=== PATIENT | female | born 1955 | race Caucasian/White ===

== ENCOUNTER 2023-09-07 19:16 | Inpatient (IN) | payer MEDICARE, MEDICAID, SELFPAY ==
--- NOTE | ~2023-09-07 | CT_ITS ---
EXAMINATION: CT abdomen pelvis wo con DATE: 09/07/2023 20:11 INDICATION: Abdominal pain. Right flank pain. TECHNIQUE: Computed tomography (CT) of the abdomen and pelvis was performed without intravenous contr ast. Automated exposure control and iterative reconstruction technique were employed. The dose-length product was 1173.26 mGy-cm. COMPARISON: None FINDINGS: Lingular atelectasis/scarring along side a small left paracardial fat pad. Couple small calcified nod ules in the basilar right lower lobe consistent with old granulomatous disease. Heart size is normal. No pericardial or pleural effusion. There are some mild circumferential wall thickening at the dista l esophagus which could be seen with esophagitis such as in the setting of reflux. Cholecystectomy cl ips at the gallbladder fossa. Diffuse hepatic steatosis. Pancreas, spleen and bilateral adrenal gland s are normal. 1.6 cm low-attenuation exophytic cyst at the upper pole the right kidney. There are sev eral subcentimeter high attenuation proteinaceous/right exophytic cyst at the periphery of the right kidney. 1.3 cm parapelvic cyst at the left kidney. Rock catheter within the decompressed bladder. Ut erus and bilateral adnexa are unremarkable. There is wall thickening at the rectum and sigmoid colon consistent with a mild distal colitis. Small bowel and appendix are normal. No free intraperitoneal g as or fluid. No pathologically enlarged abdominal or pelvic lymphadenopathy. Likely intrathecal pain pump the subcutaneous tissues along the anterior right pelvic wall with catheter extending into the l umbar central canal at the level of L2-L3 and extending beyond the cephalad-most image. Moderate thor acolumbar levoscoliosis with severe spondylosis. There is anterior fusion at L4-L5. Partially visuali zed antegrade intramedullary javi and femoral neck dynamic compression screw fixation at the proximal left femur. Extensive muscular atrophy in the abdomen, pelvis and proximal thighs. IMPRESSION: 1. Wall thickening in the rectum and distal sigmoid colon consistent with colitis. 2. Diffuse hepatic steatosis. 3. Mild wall thickening the distal esophagus suggestive of esophagitis which could be related to refl ux. Reviewed, dictated and finalized at location A. AD CUTTER TENDER IMPRESSION: 1. Wall thickening in the rectum and distal sigmoid colon consistent with colit is. 2. Diffuse hepatic steatosis. 3. Mild wall thickening the distal esophagus suggestive of esophagitis which co uld be related to reflux.
--- NOTE | ~2023-09-07 | XR_ITS ---
EXAMINATION: XR femur LT min 2V DATE: 09/07/2023 20:31 INDICATION: Instrumentation pain at the left femur TECHNIQUE: AP and lateral views of the left femur obtained on overlapping proximal and distal images COMPARISON: None. FINDINGS: Old healed oblique subtrochanteric fracture of the proximal left femur which is fixed with an antegra de intramedullary javi with femoral neck dynamic compression screw and distal interlocking screw. No i nstrumentation failure or surrounding lucency to suggest loosening or infection. Alignment of the hea led fracture appears near anatomic. Small amount of heterotopic ossicle is overlying the greater troc hanter. Moderate osteoarthritis at the left hip. Moderate to severe tricompartmental osteoarthritis a t the left knee with medial and patellofemoral compartment predominance. Prominent heterotopic ossifi cation at the medial margin of the femoral condyle and proximal tibia likely related to chronic sprai n of the medial collateral ligament. Soft tissues are unremarkable. IMPRESSION: 1. Old healed internally fixed subtrochanteric fracture the proximal left femur. No acute osseous abn ormality. 2. Moderate osteoarthritis at the right hip and moderate to severe tricompartmental osteoarthritis at the right knee. Reviewed, dictated and finalized at location A. PHONE STATION INSTALLER IMPRESSION: 1. Old healed internally fixed subtrochanteric fracture the proximal left femur . No acute osseous abnormality. 2. Moderate osteoarthritis at the right hip and moderate to severe tricompartme ntal osteoarthritis at the right knee.
[2023-09-07 19:16] VITALS: BP 142/74; PULSE 145; RESP 18; TEMP 36.9; O2SAT 96
--- NOTE | 2023-09-07 19:32 | ECG_ITS ---
Measurements Intervals [place] Rate: 120 P: 82 TX: 153 QRS: -20 QRSD: 117 T: 70 QT: 332 QTc: 469 Interpretive Statements SINUS TACHYCARDIA RIGHT BUNDLE BRANCH BLOCK Electronically Signed On 09-08-2023 12:24:42 SWITCH BOX INSTALLER by Aditya Saravia M.D.
--- NOTE | 2023-09-07 19:56 | ED.ABDPAIN ---
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 She has a chronic Rock in and it was changed yesterday. She has been battling a UTI for the past month. She has been on and off antibiotics. They did a urine culture and it showed mixed cody as well as Provedencia Staurtii with sensitivity to Zosyn. She has not been on IV antibiotics or IM antibiotics to this point yet. MD elicited complaint: abdominal pain Pertinent past history: past UTI ( Chronic Rock; changes appropriately) Onset (ago): month(s) (1) Pain Consistency: intermittent Location: RLQ, R flank, suprapubic, pelvis, groin and other ( right lower back) Severity: moderate Pain scale (0-10): 5 Quality: stabbing and sharp Radiation: back Migration to: no migration Exacerbating factors: nothing Relieving factors: nothing Associated symptoms: nausea, vomiting, diarrhea and fever Related Data Home Medications Medication Instructions Recorded Confirmed baclofen 20 mg tablet 20 mg PO QID 09/07/23 09/07/23 blood sugar diagnostic (Accu-Chek 09/07/23 09/07/23 Guide test strips) blood-glucose meter (Accu-Chek 09/07/23 09/07/23 Guide Me Glucose Meter) donepezil 10 mg tablet 10 mg PO DAILY 09/07/23 09/07/23 ezetimibe 10 mg tablet 10 mg PO DAILY 09/07/23 09/07/23 insulin aspart U-100 100 unit/mL See Rx Instructions .Route .COMPLEX 09/07/23 09/07/23 (3 mL) subcutaneous pen (Novolog FlexPen U-100 Insulin aspart) insulin glargine 100 unit/mL (3 See Rx Instructions .Route .COMPLEX 09/07/23 09/07/23 mL) subcutaneous pen (Lantus Solostar U-100 Insulin) lancets (Accu-Chek Softclix 09/07/23 09/07/23 Lancets) metoprolol succinate 25 mg 25 mg PO DAILY 09/07/23 09/07/23 tablet,extended release 24 hr oxybutynin chloride 10 mg 10 mg PO DAILY 09/07/23 09/07/23 tablet,extended release 24 hr pen needle, diabetic 32 gauge x 09/07/23 09/07/2308/09 (Novofine 32) semaglutide 0.25 mg or 0.5 mg (2 See Rx Instructions .Route .COMPLEX 09/07/23 09/07/23 mg/3 mL) subcutaneous pen injector (Ozempic) Allergies Allergy/AdvReac Type Severity Reaction Status Date / Time Sulfa (Sulfonamide Allergy Hives Verified 09/07/23 19:57 Antibiotics) Exam Const: General: healthy appearing Nutritional Appearance: well nourished Orientation/consciousness: patient oriented x3 HENMT: Head: normal to inspection Ears: external ears normal Face/Nose/Sinus: Normal external nose present Eyes: Conjunctivae: conjunctivae normal Pupils: Equal, round and reactive pupils present EOM: EOMs intact bilaterally Neck: Neck: normal visual inspection Chest: Chest palpation & inspection: normal inspection of the chest Resp: Effort & Inspection: normal respiratory effort and not labored Auscultation: clear to auscultation bilaterally and no crackles Cardio: Rate: regular rate Rhythm: regular rhythm Heart sounds: no murmurs GI: Inspection: non-distended GI Palp: Yes Soft to palpation, Yes Tenderness to palpation present (GI) ( diffuse lower abdomen bilaterally), No Guarding due to palpation present (GI), No Rigid due to palpation, No Hernia present, No Palpable mass present and No Rebound tenderness present Auscultation: normal bowel sounds : General: No bladder normal to palpation ( tender to palpation) Urinary Catheter: Urinary Catheter: patent and draining, urine cloudy, urine dark and other ( sediment seen) Back/Spine/Pelvis: Back: No no CVA tenderness and CVA tenderness ( right side) Skin: General skin exam: normal color Rashes: no rashes Wounds: wound noted and wounds noted Other: Two decubitus ulcers in the upper buttocks region both being followed by wound care and ho
[2023-09-07 20:30] LABS: Glucose Point of Care 188 mg/dl (65-105)
[2023-09-07 20:47] LABS: Basophils Absolute Auto 0.06 K/mm3 (0.00-0.10); Basophils Percent Auto 0.6 % (0.0-1.0); Eosinophils Absolute Auto 0.27 K/mm3 (0.02-0.50); Eosinophils Percent Auto 2.6 % (1.0-6.0); Hematocrit 48.5 % (35.0-42.0); Hemoglobin 15.2 g/dL (11.7-13.8); Immature Granulocyte Absolute 0.04 K/mm3 (0.00-0.00); Immature Granulocyte Percent A 0.4 % (0.0-0.0); Lymphocytes Absolute Auto 2.07 K/mm3 (1.10-4.50); Lymphocytes Percent Auto 19.7 % (18.0-42.0); Mean Corpuscular HGB Conc 31.3 g/dL (32.0-36.0); Mean Corpuscular Hemoglobin 27.7 pg (27.0-31.0); Mean Corpuscular Volume 88.3 fL (78.0-102.0); Mean Platelet Volume 9.7 fl (9.2-11.8); Monocytes Absolute Auto 0.45 K/mm3 (0.10-0.90); Monocytes Percent Auto 4.3 % (2.0-11.0); Neutrophils Absolute Auto 7.6 K/mm3 (1.7-7.2); Neutrophils Percent Auto 72.4 % (50.0-70.0); Platelet Count Result 349 K/mm3 (150-420); Red Blood Count 5.49 M/mm3 (4.20-5.40); White Blood Count 10.5 K/mm3 (4.8-10.8)
[2023-09-07] MEDS: MORPHINE SULFATE (*CRX) 2 MG/ML INJ IV PUSH (21:00)
[2023-09-07] MEDS: SODIUM CHLORIDE 0.9% IV 1,000 ML 999 ML IV CONT (21:00)
[2023-09-07 21:02] LABS: Partial Thromboplastin Time 33.3 SEC (23.90-30.70); Prothrombin Time 10.8 Seconds (9.50-12.10)
[2023-09-07 21:05] LABS: Alanine Aminotransferase 23 U/L (14-59); Albumin Level 3.3 g/dL (3.4-5.0); Alkaline Phosphatase 70 U/L (46-116); Anion Gap 14 mmol/L (8-16); Aspartate Amino Transferase 15 U/L (15-37); Bilirubin,Total 0.8 mg/dL (0.00-1.00); Blood Urea Nitrogen 16 mg/dL (7-18); Calcium 9.1 mg/dL (8.5-10.1); Carbon Dioxide 28 mmol/L (21-32); Chloride 102 mmol/L (98-108); Estimated CRCL calculation 74 ml/min; Estimated Glomerular Filt Rate > 60; Glucose 189 mg/dL (70-99); Lactic Acid Reflex 1.9 mmol/L (0.4-2.0); Osmolality Calculated 304 mOsm/kg (285-295); Potassium 3.4 mmol/L (3.5-5.1); Sodium 144 mmol/L (136-145); Total Protein 8.5 g/dL (6.4-8.2); Troponin I 9.8 ng/L (0.00-60.4)
[2023-09-07 21:11] LABS: Magnesium 1.8 mg/dL (1.8-2.4)
[2023-09-07] MEDS: PIPERACILLN/TAZ 3.375GM/NS50ML 3.375 GM/50 ML BAG IVPB (21:34)
[2023-09-07 21:42] LABS: Appearance Urine Cloudy (Clear); Bilirubin Urine 1+ (Negative); Blood Urine 3+ (Negative); Color Urine Yellow (Yellow); Glucose Urine UA Negative (Negative); Ketones Urine Negative (Negative); Leukocyte Esterase Ur 1+ LEU/UL (Negative); Nitrate Urine Positive (Negative); Protein Urine 2+ (Negative); Specific Grav Ur >= 1.030 (1.010-1.020); pH Urine 5.5 (5.0-8.0)
[2023-09-07 21:49] LABS: Add Urine Microscopic? YES; Bacteria Urine 3+ /hpf; RBC Urine 51-75 /hpf (0-2); Squamous Epithelial Cell Urine Moderate /hpf (Few); WBC Urine 21-30 /hpf (0-3)
[2023-09-07 23:00] VITALS: BMI 29.4
--- NOTE | 2023-09-07 23:00 | ADMGEN ---
This patient, Cristiane Archer, was admitted to 2nd Floor Room 205-1. Patient/family oriented to hospital policies and general routines including ID bracelet, bed and alarms, visiting hours, pain management, procedures, bathroom and other care routines, personal items, smoking policy, room service/diet, and visiting hours. Information on how to activate the Rapid Response Team has been discussed. Patient/Family are encouraged to report perceived risks to care and to ask questions if they do not understand what they are told or what they should do.
[2023-09-07 23:30] VITALS: PULSE 110; RESP 20; O2SAT 99
[2023-09-07] MEDS: POTASSIUM CHLORIDE 20 MEQ ER TABLET PO (23:32)
[2023-09-08] VITALS (7 sets, daily range): BP systolic 110–142; BP diastolic 42–84; PULSE 67–110; RESP 18–20; TEMP 35.7–36.6; O2SAT 95–99
[2023-09-08] MEDS: SODIUM CHLORIDE 0.9% IV 1,000 ML 125 ML IV CONT ×3 (00:25→19:09)
[2023-09-08] MEDS: HYDROcodone/acetaminophen (*CRX) 5-325 MG TABLET 1 TAB PO ×2 (01:39→11:41)
[2023-09-08] MEDS: PIPERACILLN/TAZ 3.375GM/NS50ML 3.375 GM/50 ML BAG IVPB ×4 (02:14→20:50)
[2023-09-08] MEDS: MORPHINE SULFATE (*CRX) 2 MG/ML INJ IV PUSH (02:35)
[2023-09-08 05:14] LABS: Basophils Absolute Auto 0.04 K/mm3 (0.00-0.10); Basophils Percent Auto 0.5 % (0.0-1.0); Eosinophils Absolute Auto 0.21 K/mm3 (0.02-0.50); Eosinophils Percent Auto 2.8 % (1.0-6.0); Hemoglobin 12.2 g/dL (11.7-13.8); Immature Granulocyte Absolute 0.04 K/mm3 (0.00-0.00); Immature Granulocyte Percent A 0.5 % (0.0-0.0); Lymphocytes Absolute Auto 0.73 K/mm3 (1.10-4.50); Lymphocytes Percent Auto 9.6 % (18.0-42.0); Mean Corpuscular HGB Conc 31.3 g/dL (32.0-36.0); Mean Corpuscular Hemoglobin 27.8 pg (27.0-31.0); Mean Corpuscular Volume 88.8 fL (78.0-102.0); Mean Platelet Volume 10.2 fl (9.2-11.8); Monocytes Absolute Auto 0.22 K/mm3 (0.10-0.90); Monocytes Percent Auto 2.9 % (2.0-11.0); Neutrophils Absolute Auto 6.4 K/mm3 (1.7-7.2); Neutrophils Percent Auto 83.7 % (50.0-70.0); Platelet Count Result 259 K/mm3 (150-420); Red Blood Count 4.39 M/mm3 (4.20-5.40); White Blood Count 7.6 K/mm3 (4.8-10.8)
[2023-09-08 05:32] LABS: Alanine Aminotransferase 24 U/L (14-59); Albumin Level 2.5 g/dL (3.4-5.0); Alkaline Phosphatase 51 U/L (46-116); Bilirubin,Total 1.1 mg/dL (0.00-1.00); Blood Urea Nitrogen 15 mg/dL (7-18); Calcium 7.7 mg/dL (8.5-10.1); Carbon Dioxide 24 mmol/L (21-32); Estimated CRCL calculation 68 ml/min; Estimated Glomerular Filt Rate > 60; Glucose 185 mg/dL (70-99); Total Protein 6.5 g/dL (6.4-8.2)
[2023-09-08 05:45] LABS: Anion Gap 12 mmol/L (8-16); Aspartate Amino Transferase 37 U/L (15-37); Chloride 107 mmol/L (98-108); Osmolality Calculated 301 mOsm/kg (285-295); Sodium 143 mmol/L (136-145)
[2023-09-08] MEDS: INSULIN HUMAN LISPRO (*BKC) 1,000 UNITS/10 ML VIAL 20 UNITS SUB-Q ×3 (08:21→16:40)
[2023-09-08] MEDS: BACLOFEN 10 MG TABLET 20 MG PO ×4 (08:21→20:44)
[2023-09-08] MEDS: METOPROLOL SUCCINATE EXT REL 25 MG TABCR PO (08:22)
[2023-09-08] MEDS: DONEPEZIL HCL 5 MG TABLET 10 MG PO (08:22)
[2023-09-08] MEDS: SACCHAROMYCES BOULARDII 250 MG CAPSULE PO ×3 (08:22→16:29)
[2023-09-08] MEDS: EZETIMIBE 10 MG TABLET PO (08:22)
[2023-09-08] MEDS: oxyBUTYnin CHLORIDE XL 5 MG TAB.ER.24 10 MG PO (08:22)
[2023-09-08] MEDS: ENOXAPARIN 40 MG/0.4 ML SYRINGE SUB-Q (08:23)
--- NOTE | 2023-09-08 09:39 | PM.IMHP ---
H&P: HPI History of Present Illness Date/Time: 09/08/23 09:39 Chief Complaint: UTI , buttock decub Narrative: This is a 67 year old female who has been a paraplegic since the 's Patient has a chronic rincon that obviously has very poor care. Patient has a acute on chronic urinary tract infection and patient has removed and replaced the same catheter. According to patient she was not having urine output and she has home health but she only recieves one catheter per month. Per the ER documentation patient has a Ubi with growing in which it is susceptible to Zosyn. I a unsure where this information was obtained from although a culture has been sent off. Patient has a wound on her iliac area in which she has informed me she does the dressing she just reaches back there and places the packing and puts a 4x4 when she has Dakin solution she uses otherwise she uses normal saline. Patient states that it has been a while since she has seen her PCP as she does not have transportation. Patient is receiving her 2nd dose of IV antibiotic and tomorrow is her third. She informed she has place to go although she has not had her medication refilled. When asked to many question and or pressured to ask question that does not make she she becomes emotional and irrational slinging back and forth in the bed yelling and hitting herself in which I personally seen when the nurse asked her a question and she voiced that she was going to call someone to up here and she will take care of this asking all these questioned that she has deemed unnecessary. When I explained to patient we were jsut trying to get adequate information to assist in her care she immediately stopped and acted as if nothing had just happened. I did inform patient since she already has home health set up and tomorrow she will have recieved her third dose of IV antibioitic she may be sent home on oral antibiotic and she will be given a call if the medication we send her home with will not work and that it would be up to the following provider. Patient has been eating and drinking without difficulties. She ahs remained afebrile. Patient buttock wound iliac creast is deep almost to the you are able to see some bone but looks as if close. Patient informs me that this has been seen by a a few doctor and even a wound clinic per patient that this is the best it will be and it has been chronic for a few years. Review of Systems Review of Systems: UTI, wound care All systems reviewed & are unremarkable except as noted in HPI and below PMFSH Past Medical History Medical History (Updated 09/08/23 @ 18:21 by Brea Tate NP) Paraplegia Wound of buttock Social History Social History Smoking status: Never smoker Second hand tobacco smoke exposure: No Alcohol intake: never Substance use: never Substance use type: does not use Do You Feel Safe in your Home?: Yes Lack of Transportation: No Lack of Food: Sometimes True Current Housing: I Have Housing Concerned About Future Housing: No Difficulty Paying Gas/Electric Bills: No Difficulty Paying for Meds: No Currently Unemployed: No Education: Trade/Vocational Certificate Difficulty w/ Childcare or Family Care: No Spiritual care concerns: No Meds Home Medications and Allergies Home Medications Medication Instructions Recorded Confirmed Type baclofen 20 mg tablet 20 mg PO QID 09/07/23 09/07/23 History blood sugar diagnostic (Accu-Chek 09/07/23 09/07/23 History Guide test strips) blood-glucose meter (Accu-Chek 09/07/23 09/07/23 History Guide Me Glucose Meter) donepezil 10 mg tablet 10 mg PO DAILY 09/07/23 09/07/23 History ezetimibe 10 mg tablet 10 mg PO DAILY 09/07/23 09/07/23 History insulin aspart U-100 100 unit/mL See Rx Instructions .Route .COMPLEX 09/07/23 09/07/23 History (3 mL) subcutaneous pen (Novolog FlexPen U-100
[2023-09-08 11:25] LABS: Glucose Point of Care 126 mg/dl (65-105)
[2023-09-08 11:25] LABS: Glucose Point of Care 138 mg/dl (65-105)
--- NOTE | 2023-09-08 11:50 | PC.NURSE ---
family in room with patient, pt requested pain medications for lower extremity pain. states pain in constant , rate 5/10. call alvarez in reach
[2023-09-08] MEDS: ONDANSETRON INJ 4 MG/2 ML VIAL IV PUSH (12:50)
--- NOTE | 2023-09-08 12:50 | PC.NURSE ---
pt complaint of nausea, medication given as ordered.
[2023-09-08 16:39] LABS: Glucose Point of Care 147 mg/dl (65-105)
--- NOTE | 2023-09-08 18:44 | PC.NURSE ---
report to anna elizondo. all questions answered
[2023-09-08 20:49] LABS: Glucose Point of Care 96 mg/dl (65-105)
[2023-09-08] MEDS: INSULIN GLARGINE (*BKC) 1,000 UNITS/10 ML VIAL 30 UNITS SUB-Q (20:53)
[2023-09-09] VITALS (7 sets, daily range): BP systolic 113–140; BP diastolic 51–74; PULSE 60–76; RESP 18–20; TEMP 36–36.3; O2SAT 95–98
[2023-09-09] MEDS: HYDROcodone/acetaminophen (*CRX) 5-325 MG TABLET 1 TAB PO (00:55)
[2023-09-09] MEDS: PIPERACILLN/TAZ 3.375GM/NS50ML 3.375 GM/50 ML BAG IVPB ×4 (02:09→21:33)
[2023-09-09] MEDS: SODIUM CHLORIDE 0.9% IV 1,000 ML 125 ML IV CONT ×2 (04:53→14:00)
[2023-09-09 05:50] LABS: Hematocrit 35.6 % (35.0-42.0); Mean Corpuscular HGB Conc 30.9 g/dL (32.0-36.0); Mean Corpuscular Hemoglobin 27.5 pg (27.0-31.0); Mean Platelet Volume 10.1 fl (9.2-11.8); Platelet Count Result 222 K/mm3 (150-420); Red Cell Distribution Width 16.1 % (11.6-14.4); White Blood Count 4.1 K/mm3 (4.8-10.8)
[2023-09-09 06:00] LABS: Anion Gap 8 mmol/L (8-16); Blood Urea Nitrogen 14 mg/dL (7-18); Carbon Dioxide 26 mmol/L (21-32); Chloride 110 mmol/L (98-108); Estimated CRCL calculation 87 ml/min; Estimated Glomerular Filt Rate > 60; Glucose 239 mg/dL (70-99); Osmolality Calculated 306 mOsm/kg (285-295); Sodium 144 mmol/L (136-145)
--- NOTE | 2023-09-09 06:19 | PC.NURSE ---
Patient was in bed, visiting with her family at bedside. Telemetry is running in sinus rhythm. Accuchecks range from 147 to 96. Patient was c/o back spasms/pain and received a [place] PO at 0055. This was effective for pain, but patient is now c/o being warm. She is afebrile, and bedclothes have been removed to help her cool down. Patient is concerned that the pain pill may be effecting her adversely, or it may be something I ate . Vitals are stable and WNL. Patient has slept off and on during the night, but she stated that this is typical for her. Patient is a paraplegic, and has a chronic rincon. Patient voids BM by pulling it out with her fingers, as she states that she is unable to push it out.
[2023-09-09] MEDS: ONDANSETRON INJ 4 MG/2 ML VIAL IV PUSH ×2 (06:25→12:31)
[2023-09-09] MEDS: INSULIN HUMAN LISPRO (*BKC) 1,000 UNITS/10 ML VIAL 20 UNITS SUB-Q (08:13)
[2023-09-09 08:16] LABS: Glucose Point of Care 221 mg/dl (65-105)
[2023-09-09] MEDS: SACCHAROMYCES BOULARDII 250 MG CAPSULE PO ×3 (09:29→17:22)
[2023-09-09] MEDS: ENOXAPARIN 40 MG/0.4 ML SYRINGE SUB-Q (09:29)
[2023-09-09] MEDS: DONEPEZIL HCL 5 MG TABLET 10 MG PO (09:30)
[2023-09-09] MEDS: BACLOFEN 10 MG TABLET 20 MG PO ×4 (09:31→21:34)
[2023-09-09] MEDS: EZETIMIBE 10 MG TABLET PO (09:32)
[2023-09-09 11:36] LABS: Glucose Point of Care 189 mg/dl (65-105)
--- NOTE | 2023-09-09 12:06 | PM.IMPN ---
Progress Note: A&P Assessment and Plan (1) Acute UTI: Code(s): N39.0 - Urinary tract infection, site not specified Status: Acute Assessment and Plan: IV fluids IV antiibotics Rock changed on 09/07/23 intake and output 09/09: Urine culture remains pending (2) Colitis: Code(s): K52.9 - Noninfective gastroenteritis and colitis, unspecified Status: Acute Assessment and Plan: Wall thickening in the rectum and distal sigmoid colon consistent with colitis on imaging. Patient on IV antibiotics for urinary tract infection. 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 Patient complained of nausea throughout the day has received p.r.n. nausea medication with some improvement. Patient still having low appetite and not eating and drinking enough to completely discontinue IV fluids. Urine catheter draining well. Patient denies difficulty breathing chest pain fever chills. Still pending urine culture. Review of Systems Review of Systems: All systems reviewed & are unremarkable except as noted in HPI and below Exam Const: General: comfortable Other: moment of distress and emotional outburst HENMT: Face/Nose/Sinus: Normal nares present Mouth: Yes moist mucous membranes Eyes: General: appearance normal, both eyes and all related structures Resp: Effort & Inspection: normal respiratory effort Auscultation: clear to auscultation bilaterally Cardio: Rate: regular rate Rhythm: regular rhythm GI: Auscultation: normal bowel sounds Other: diarrhea to soft stool Urinary Catheter: Urinary Catheter: patent and draining and urine clear Skin: Wounds: wounds noted (pressure wound noted) Other: Multiple healed wounds discoloration noted Extrem: General: pedal edema Other: Bilateral feet flaccid inverted some toes discolored Psych: Affect: Anxious affect present Objective Data Vital Signs Vital Signs: Vital Signs - 24 hr 09/08/23 16:00 09/08/23 16:00 09/08/23 20:00 Temperature 35.7 C L Pulse Rate 67 68 75 Respiratory Rate 18 Blood Pressure 110/49 L Pulse Oximetry 96 Oxygen Delivery Room Air 09/08/23 20:00 09/08/23 20:00 09/09/23 00:00 Temperature 36.3 C L Pulse Rate 74 74 68 Respiratory Rate 18 20 Blood Pressure 142/62 H Pulse Oximetry 97 97 Oxygen Delivery Room Air Room Air 09/09/23 00:00 09/09/23 04:00 09/09/23 04:00 Temperature 36.2 C L 36.1 C L Pulse Rate 72 69 69 Respiratory Rate 18 20 Blood Pressure 113/53 L 119/51 L Pulse Oximetry 96 95 Oxygen Delivery Room Air Room Air 09/09/23 08:00 09/09/23 09:35 09/09/23 08:00 Temperature 36.0 C L Pulse Rate 76 68 68 Respiratory Rate 20 Blood Pressure 113/70 Pulse Oximetry 96 Oxygen Delivery Room Air Intake/Output Intake/Output: Intake & Output 09/06/23 09/07/23 09/08/23 09/09/23 23:59 23:59 23:59 23:59 Intake Total 1050 4520 2000 Output Total 400 1450 750 Balance 650 3070 1250 Meds/Results Medications: Active Medications Generic Name Dose Route Start Last Admin Trade Name Freq PRN Reason Stop Dose Admin Acetaminophen 650 mg 09/07/23 21:53 Acetaminophen 325 Mg Tablet PO Q4H PRN Mild Pain (1-3) or Fever Hydrocodone Bitart/Acetaminop
[2023-09-09 17:00] LABS: Glucose Point of Care 206 mg/dl (65-105)
[2023-09-09] MEDS: INSULIN GLARGINE (*BKC) 1,000 UNITS/10 ML VIAL 30 UNITS SUB-Q (21:30)
[2023-09-09 21:36] LABS: Glucose Point of Care 150 mg/dl (65-105)
[2023-09-10] VITALS: BP 148/59; PULSE 72; RESP 20; TEMP 36; O2SAT 97
[2023-09-10] MEDS: SODIUM CHLORIDE 0.9% IV 1,000 ML 125 ML IV CONT (01:47)
[2023-09-10] MEDS: PIPERACILLN/TAZ 3.375GM/NS50ML 3.375 GM/50 ML BAG IVPB (02:07)
[2023-09-10] MEDS: MORPHINE SULFATE (*CRX) 2 MG/ML INJ IV PUSH (02:17)
[2023-09-10] MEDS: ONDANSETRON INJ 4 MG/2 ML VIAL IV PUSH ×2 (03:21→08:20)
--- NOTE | 2023-09-10 04:33 | PC.NURSE ---
Pt noted yelling out in room, states she is having muscle spasm to left hip. Able to reposition pt for comfort with 2 assist. Pt anxious, speaking quickly, with flighty sentences. Also c/o IV bothering her , states he face feels funny . IV fluids stopped to see if sx resolved, no angioedema noted. 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 Facial symptoms not resolved after pausing Normal Saline, pt agrees to resume fluids at ordered rate of 125mL/hr. Denies further needs at this time.
--- NOTE | 2023-09-10 05:24 | PC.NURSE ---
Patient was in bed, visiting with her family at bedside. Patient is paraplegic, with bilateral footdrop. Patient has a rincon, and stage 3-4 pressure wound on her buttocks. Patient has anxiety; she speaks quickly, with flight of ideas, possibly due to recent trauma. Patient has chronic BLE pain. Patient received morphine for pain of 02/12 at 0217. Morphine was effective, but 2 hours later, she c/o hip spasms and numbness around her mouth. Patient declined other pain medication at this time. Patient fell back to sleep shortly after being repositioned. Vitals WNL except for low temperature (96.8) and high BP (148/59). Patient's blood sugars ranged from 150 to 221. She is reportedly not eating or drinking well; as a result, she has normal saline running at 125 mL/hr. Patient's output was 1600 mL in the rincon.
[2023-09-10 08:00] VITALS: BP 139/70; PULSE 66; RESP 16; TEMP 36.1; O2SAT 98
[2023-09-10 08:10] LABS: Glucose Point of Care 141 mg/dl (65-105)
[2023-09-10] MEDS: ENOXAPARIN 40 MG/0.4 ML SYRINGE SUB-Q (09:47)
[2023-09-10] MEDS: SACCHAROMYCES BOULARDII 250 MG CAPSULE PO ×3 (09:48→18:17)
[2023-09-10] MEDS: BACLOFEN 10 MG TABLET 20 MG PO ×4 (09:48→20:48)
[2023-09-10] MEDS: oxyBUTYnin CHLORIDE XL 5 MG TAB.ER.24 10 MG PO (09:48)
[2023-09-10 09:49] VITALS: PULSE 66
[2023-09-10] MEDS: DONEPEZIL HCL 5 MG TABLET 10 MG PO (09:49)
[2023-09-10] MEDS: METOPROLOL SUCCINATE EXT REL 25 MG TABCR PO (09:49)
[2023-09-10] MEDS: EZETIMIBE 10 MG TABLET PO (09:49)
[2023-09-10] MEDS: INSULIN HUMAN LISPRO (*BKC) 1,000 UNITS/10 ML VIAL 20 UNITS SUB-Q ×2 (09:58→12:30)
--- NOTE | 2023-09-10 10:52 | PM.IMPN ---
Progress Note: A&P Assessment and Plan (1) Acute UTI: Code(s): N39.0 - Urinary tract infection, site not specified Status: Acute Assessment and Plan: IV fluids IV antiibotics Rock changed on 09/07/23 intake and output 09/09: Urine culture remains pending 09/10: Urine culture growing E coli, sensitivities pending. Lost IV access. Keflex 500 mg q.6 pending sensitivities (2) Colitis: Code(s): K52.9 - Noninfective gastroenteritis and colitis, unspecified Status: Acute Assessment and Plan: Wall thickening in the rectum and distal sigmoid colon consistent with colitis on imaging. Patient on IV antibiotics for urinary tract infection. 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 Patient lost IV access again with no remaining easy veins so we will transition to Keflex 500 mg every 6 hours. Based on sensitivities if we have to restart IV antibiotics we will have to place a PICC line. Coccyx wound was further explored he by nursing staff on dressing change and there is no tunneling. Best product would be collagen but that is not available for us at this time so we are using wet to dry dressings. Patient will require follow-up with wound care after discharge. Additionally, patient is planning to discharge to an apartment living by herself with daily visits from caretakers. Due to prolonged paraplegia and bed confined status patient requires durable medical equipment of a hospital bed semi-elective. Patient requires positioning of body in ways not feasible in a regular bed to alleviate pain and pressure that has caused pressure wounds on her coccyx and left iliac crest. Patient requires frequent changes in body position to manage pain and offload pressure. To accommodate these changes in body position to manage pain and offload pressure patient requires a trap ease. She needs a low air loss mattress to decrease pressure ulcer potential. Review of Systems Review of Systems: All systems reviewed & are unremarkable except as noted in HPI and below Exam Const: General: comfortable Other: moments of distress and emotional outbursts HENMT: Face/Nose/Sinus: Normal nares present Mouth: Yes moist mucous membranes Eyes: General: appearance normal, both eyes and all related structures Resp: Effort & Inspection: normal respiratory effort Auscultation: clear to auscultation bilaterally Cardio: Rate: regular rate Rhythm: regular rhythm GI: Auscultation: normal bowel sounds Other: diarrhea to soft stool Urinary Catheter: Urinary Catheter: patent and draining and urine clear Skin: General skin exam: wounds noted (pressure wound noted on coccyx and left iliac crest) Wounds: wounds noted (pressure wound noted) Extrem: General: pedal edema Other: Bilateral feet flaccid inverted some toes discolored Psych: Affect: normal affect and Anxious affect present Objective Data Vital Signs Vital Signs: Vital Signs - 24 hr 09/09/23 12:00 09/09/23 16:00 09/09/23 20:00 Temperature 36.3 C L Pulse Rate 60 64 64 Respiratory Rate 20 20 Blood Pressure 140/74 Pulse Oximetry 98 98 Oxygen Delivery Room Air Room Air 09/10/23 00:00 09/10/23 08:00 09/10/23 09:49 Temperature 36.0 C L 36.1 C L Pulse Rate 72 66 66 Respirator
[2023-09-10] MEDS: CEPHALEXIN 500 MG CAPSULE PO ×3 (11:31→23:47)
[2023-09-10 11:41] LABS: Glucose Point of Care 206 mg/dl (65-105)
[2023-09-10 16:35] VITALS: BP 132/69; PULSE 67; RESP 16; TEMP 36.1; O2SAT 96
[2023-09-10 16:59] LABS: Glucose Point of Care 127 mg/dl (65-105)
[2023-09-10 17:22] VITALS: BMI 10.0
[2023-09-10 20:00] VITALS: PULSE 67; RESP 16; O2SAT 96
[2023-09-10] MEDS: INSULIN GLARGINE (*BKC) 1,000 UNITS/10 ML VIAL 30 UNITS SUB-Q (20:50)
[2023-09-10 20:52] LABS: Glucose Point of Care 193 mg/dl (65-105)
[2023-09-11] VITALS: BP 132/73; PULSE 68; RESP 20; TEMP 36.2; O2SAT 97
[2023-09-11] MEDS: CEPHALEXIN 500 MG CAPSULE PO ×3 (05:34→17:43)
[2023-09-11 07:42] LABS: Glucose Point of Care 156 mg/dl (65-105)
--- NOTE | 2023-09-11 07:48 | PC.NURSE ---
Pt blood sugar is 156 today.
[2023-09-11 08:00] VITALS: BP 172/91; PULSE 67; RESP 14; TEMP 36.2; O2SAT 96
[2023-09-11 08:42] VITALS: PULSE 67
[2023-09-11] MEDS: SACCHAROMYCES BOULARDII 250 MG CAPSULE PO ×3 (08:42→17:43)
[2023-09-11] MEDS: METOPROLOL SUCCINATE EXT REL 25 MG TABCR PO (08:42)
[2023-09-11] MEDS: ENOXAPARIN 40 MG/0.4 ML SYRINGE SUB-Q (08:42)
[2023-09-11] MEDS: BACLOFEN 10 MG TABLET 20 MG PO ×3 (08:43→17:43)
[2023-09-11] MEDS: EZETIMIBE 10 MG TABLET PO (08:43)
[2023-09-11] MEDS: DONEPEZIL HCL 5 MG TABLET 10 MG PO (08:43)
[2023-09-11] MEDS: oxyBUTYnin CHLORIDE XL 5 MG TAB.ER.24 10 MG PO (08:43)
[2023-09-11] MEDS: INSULIN HUMAN LISPRO (*BKC) 1,000 UNITS/10 ML VIAL 20 UNITS SUB-Q ×2 (08:50→12:20)
--- NOTE | 2023-09-11 10:53 | PM.IMPN ---
Progress Note: A&P Assessment and Plan (1) Acute UTI: Code(s): N39.0 - Urinary tract infection, site not specified Status: Acute Assessment and Plan: IV fluids IV antiibotics Rock changed on 09/07/23 intake and output 09/09: Urine culture remains pending 09/10: Urine culture growing E coli, sensitivities pending. Lost IV access. Keflex 500 mg q.6 pending sensitivities (2) Colitis: Code(s): K52.9 - Noninfective gastroenteritis and colitis, unspecified Status: Acute Assessment and Plan: Wall thickening in the rectum and distal sigmoid colon consistent with colitis on imaging. Patient on IV antibiotics for urinary tract infection. 09/11: Abx changed yesterday to Keflex PO, do not suspect bacterial colitis at this time. 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 Time Spent With Patient Time with patient: 15 - 25 minutes Subjective Date/time seen: 09/11/23 10:53 Interval history: 09/10: Urinary tract infection growing E coli, sensitivities pending. Patient lost IV access again with no remaining easy veins so we will transition to Keflex 500 mg every 6 hours. Based on sensitivities if we have to restart IV antibiotics we will have to place a PICC line. Coccyx wound was further explored he by nursing staff on dressing change and there is no tunneling. Best product would be collagen but that is not available for us at this time so we are using wet to dry dressings. Patient will require follow-up with wound care after discharge. Additionally, patient is planning to discharge to an apartment living by herself with daily visits from caretakers. Due to prolonged paraplegia and bed confined status patient requires durable medical equipment of a hospital bed semi-elective. Patient requires positioning of body in ways not feasible in a regular bed to alleviate pain and pressure that has caused pressure wounds on her coccyx and left iliac crest. Patient requires frequent changes in body position to manage pain and offload pressure. To accommodate these changes in body position to manage pain and offload pressure patient requires a trap ease. She needs a low air loss mattress to decrease pressure ulcer potential. 09/11: E. coli UTI, awaiting sensitivities, on Keflex currently as no IV site possible at this time. Awaiting sensitivities to make sure we can discharge on oral antibiotics. Prescription for hospital bed with trapeze and mattress for offloading pressure written. Requesting additional help at home as patient is planning to move into her own apartment after hospitalization. May have to temporarily go to her niece's house before moving into her apartment. Review of Systems Review of Systems: All systems reviewed & are unremarkable except as noted in HPI and below Exam Const: General: comfortable Other: moments of distress and emotional outbursts HENMT: Face/Nose/Sinus: Normal nares present Mouth: Yes moist mucous membranes Eyes: General: appearance normal, both eyes and all related structures Resp: Effort & Inspection: normal respiratory effort Auscultation: clear to auscultation bilaterally Cardio: Rate: regular rate Rhythm: regular rhythm GI: Auscultation: normal bowel sounds Other: diarrhea to soft stool Urinary Catheter: Urinary Catheter: patent and draining and urine clear Skin: General skin exam: wounds noted (pressure wound noted) Wounds: no wounds (Iliac crease crease) and wounds noted (pressure wound noted) Other:
--- NOTE | 2023-09-11 11:53 | PC.NURSE ---
Pt blood sugar was 189 @ 1130.
[2023-09-11 11:56] LABS: Glucose Point of Care 189 mg/dl (65-105)
--- NOTE | 2023-09-11 14:00 | PM.DS ---
DS: Admitting Diagnosis Discharge Date 09/11/2023 Admitting Diagnosis Diverticulitis (should have been colitis), acute UTI, Wound of buttock, paraplegia DS: Discharge Diagnosis Discharge Diagnosis (1) Acute UTI: Code(s): N39.0 - Urinary tract infection, site not specified Status: Acute (2) Colitis: Code(s): K52.9 - Noninfective gastroenteritis and colitis, unspecified Status: Acute (3) Wound of buttock: Code(s): S31.809A - Unspecified open wound of unspecified buttock, initial encounter Status: Chronic (4) Paraplegia: Code(s): G82.20 - Paraplegia, unspecified Status: Chronic (5) Anxiety: Code(s): F41.9 - Anxiety disorder, unspecified Status: Acute (6) Type 2 diabetes mellitus treated with insulin: Code(s): E11.9 - Type 2 diabetes mellitus without complications; 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 Patient has a acute on chronic urinary tract infection and patient has removed and replaced the same catheter. According to patient she was not having urine output and she has home health but she only recieves one catheter per month. Per the ER documentation patient has a Ubi with ? growing in which it is susceptible to Zosyn. I a unsure where this information was obtained from although a culture has been sent off. Patient has a wound on her iliac area in which she has informed me she does the dressing she just reaches back there and places the packing and puts a 4x4 when she has Dakin solution she uses otherwise she uses normal saline. Patient states that it has been a while since she has seen her PCP as she does not have transportation.? Patient is receiving her 2nd dose of IV? antibiotic and tomorrow is her third. She informed she has place to go although she has not had her medication refilled. When asked to many question and or pressured to ask question that does not make she she becomes emotional and irrational slinging back and forth in the bed yelling and hitting herself in which I personally seen when the nurse asked her a question and she voiced that she was going to call someone to up here and she will take care of this asking all these questioned that she has deemed unnecessary.? When I explained to patient we were jsut trying to get adequate information to assist in her care she immediately stopped and acted as if nothing had just happened.? I did inform patient since she already has home health set up and tomorrow she will have recieved her third dose of? IV antibioitic she may be sent home on oral antibiotic and she will be given a call if the medication we send her home with will not work and that it would be up to the following provider. Patient has been eating and drinking without difficulties. She ahs remained afebrile. Patient buttock wound iliac creast is deep almost to the you are able to see some bone but looks as if close. Patient informs me that this has been seen by a a few doctor and even a wound clinic dr. per patient that this is the best it will be and it has been chronic for a few years. 2: Patient has been anxious today as the previous provider mentioned that she may be discharged.? Patient complained of nausea throughout the day has received p.r.n. nausea medication with some improvement.? Patient still having low appetite and not eating and drinking enough to completely discontinue IV fluids.? Urine catheter draining well.? Patient denies difficulty breathing chest pain fever chills. Still pending urine culture. 2:? Urinary tract infection growing E coli, sensitivities pending.? Patient lost IV access again with no remaining easy veins so we will transition to Keflex 500 mg every 6 hours.? Based on sensitivities if we have to restart IV antib
[2023-09-11 16:35] VITALS: BP 155/55; PULSE 81; RESP 16; TEMP 36.1; O2SAT 97
[2023-09-11 17:16] LABS: Glucose Point of Care 76 mg/dl (65-105)
--- NOTE | 2023-09-11 19:05 | PC.NURSE ---
[facility] here to transport patient home. Patient transferred to stretcher with 3x assist. Report given to [facility]. All belongings gathered together and sent home with patient. Discharge instructions and education given to patient. Patient states understanding. Patient has no IV at time of discharge. Patient left floor via stretcher accompanied by EMS. Family aware of patient discharge.
--- NOTE | 2023-09-13 10:08 | PC.NURSE ---
Discharge call back completed, doing ok at home, no questions or concerns, did receive dc instructions and understood them
== END 2023-09-11 19:05 | disposition home health service (06) | DRG 699 ==
LOC: CHSED 21:51 → CHS2ND 22:07
PROVIDERS: Nurse Practitioner Family; Admitting Provider Internal Medicine; Emergency Provider Emergency Medicine; PCP Physician Assistant; Visit Provider Internal Medicine
DX: T83.511A Infection and inflammatory reaction due to indwelling urethral catheter, initial encounter (principal); G82.20 Paraplegia, unspecified; N39.0 Urinary tract infection, site not specified; K52.9 Noninfective gastroenteritis and colitis, unspecified; L89.309 Pressure ulcer of unspecified buttock, unspecified stage; L89.159 Pressure ulcer of sacral region, unspecified stage; B96.20 Unspecified Escherichia coli [E. coli] as the cause of diseases classified elsewhere
CPT/HCPCS: 36415; 73552; 74176; 80048; 80053; 81001; 82948; 83605; 83735; 84484; 85025; 85027; 85610; 85730; 87040; 87077; 87086; 87088; 87186; 93005; 96361; 96365; 96366; 96375; 97162; 99285; A9270; G0378; J1650; J1815; J2270; J2405; J2543; J7030

== ENCOUNTER 2023-09-27 13:20 | Emergency (ER) | payer MEDICARE, MEDICAID, SELFPAY ==
[2023-09-27 13:20] VITALS: BP 161/96; PULSE 134; RESP 28; TEMP 36.7; O2SAT 95
[2023-09-27 14:00] VITALS: BP 130/92; PULSE 104; RESP 17; O2SAT 94
[2023-09-27 14:00] LABS: Basophils Absolute Auto 0.05 K/mm3 (0.00-0.10); Basophils Percent Auto 0.6 % (0.0-1.0); Eosinophils Absolute Auto 0.29 K/mm3 (0.02-0.50); Eosinophils Percent Auto 3.6 % (1.0-6.0); Hematocrit 44.3 % (35.0-42.0); Hemoglobin 14.2 g/dL (11.7-13.8); Immature Granulocyte Absolute 0.03 K/mm3 (0.00-0.00); Immature Granulocyte Percent A 0.4 % (0.0-0.0); Lymphocytes Absolute Auto 1.66 K/mm3 (1.10-4.50); Lymphocytes Percent Auto 20.8 % (18.0-42.0); Mean Corpuscular HGB Conc 32.1 g/dL (32.0-36.0); Mean Corpuscular Hemoglobin 27.7 pg (27.0-31.0); Mean Corpuscular Volume 86.4 fL (78.0-102.0); Mean Platelet Volume 9.8 fl (9.2-11.8); Monocytes Absolute Auto 0.47 K/mm3 (0.10-0.90); Monocytes Percent Auto 5.9 % (2.0-11.0); Neutrophils Absolute Auto 5.5 K/mm3 (1.7-7.2); Neutrophils Percent Auto 68.7 % (50.0-70.0); Platelet Count Result 349 K/mm3 (150-420); Red Blood Count 5.13 M/mm3 (4.20-5.40); Red Cell Distribution Width 15.6 % (11.6-14.4)
[2023-09-27 14:24] LABS: Alanine Aminotransferase 22 U/L (14-59); Albumin Level 3.1 g/dL (3.4-5.0); Alkaline Phosphatase 65 U/L (46-116); Anion Gap 12 mmol/L (8-16); Aspartate Amino Transferase 11 U/L (15-37); Bilirubin,Total 0.8 mg/dL (0.00-1.00); Blood Urea Nitrogen 16 mg/dL (7-18); Calcium 9.1 mg/dL (8.5-10.1); Carbon Dioxide 28 mmol/L (21-32); Chloride 101 mmol/L (98-108); Estimated CRCL calculation 72 ml/min; Estimated Glomerular Filt Rate > 60; Glucose 130 mg/dL (70-99); Osmolality Calculated 295 mOsm/kg (285-295); Potassium 3.4 mmol/L (3.5-5.1); Sodium 141 mmol/L (136-145)
[2023-09-27 14:27] LABS: Lactic Acid Reflex 2.8 mmol/L (0.4-2.0)
[2023-09-27 14:30] VITALS: BP 134/87; PULSE 103; RESP 17; O2SAT 96
[2023-09-27] MEDS: POTASSIUM BICARBONATE 25 MEQ TABEF 50 MEQ PO (14:46)
--- NOTE | 2023-09-27 14:46 | ED.FEMALEGU ---
HPI - Female Genitourinary General Chief complaint: Urogenital-Female Stated complaint: UTI Time Seen by Provider: 09/27/23 13:29 Source: patient Mode of arrival: EMS Limitations: no limitations History of Present Illness HPI Narrative: this is a 67-year-old female with a recent urinary tract infection that was treated and had a urinalysis performed at her primary care physician's office and showed that she has urinary tract infection was sent to the ER. Patient is stable up vitals are stable asymptomatic with no fever chills does have Rock catheter in place. Patient has no nausea or vomiting no flank pain does have some mild suprapubic tenderness with no hematuria. MD elicited complaint: dysuria and UTI Onset (ago): hour(s) Severity: mild Related Data Home Medications Medication Instructions Recorded Confirmed baclofen 20 mg tablet 20 mg PO QID 09/07/23 09/07/23 blood sugar diagnostic (Accu-Chek 09/07/23 09/07/23 Guide test strips) blood-glucose meter (Accu-Chek 09/07/23 09/07/23 Guide Me Glucose Meter) donepezil 10 mg tablet 10 mg PO DAILY 09/07/23 09/07/23 ezetimibe 10 mg tablet 10 mg PO DAILY 09/07/23 09/07/23 insulin aspart U-100 100 unit/mL See Rx Instructions .Route .COMPLEX 09/07/23 09/07/23 (3 mL) subcutaneous pen (Novolog FlexPen U-100 Insulin aspart) insulin glargine 100 unit/mL (3 See Rx Instructions .Route .COMPLEX 09/07/23 09/07/23 mL) subcutaneous pen (Lantus Solostar U-100 Insulin) lancets (Accu-Chek Softclix 09/07/23 09/07/23 Lancets) metoprolol succinate 25 mg 25 mg PO DAILY 09/07/23 09/07/23 tablet,extended release 24 hr oxybutynin chloride 10 mg 10 mg PO DAILY 09/07/23 09/07/23 tablet,extended release 24 hr pen needle, diabetic 32 gauge x 09/07/23 09/07/2308/09 (Novofine 32) semaglutide 0.25 mg or 0.5 mg (2 See Rx Instructions .Route .COMPLEX 09/07/23 09/07/23 mg/3 mL) subcutaneous pen injector (Ozempic) Allergies Allergy/AdvReac Type Severity Reaction Status Date / Time Sulfa (Sulfonamide Allergy Hives Verified 09/27/23 13:41 Antibiotics) Review of Systems Review of Systems: All systems reviewed & are unremarkable except as noted in HPI and below PMFSH Past Medical History Medical History Anxiety Paraplegia Wound of buttock Social History Social History Smoking status: Never smoker Second hand tobacco smoke exposure: No Alcohol intake: never Substance use: never Substance use type: does not use Do You Feel Safe in your Home?: Yes Lack of Transportation: No Lack of Food: Sometimes True Current Housing: I Have Housing Concerned About Future Housing: No Difficulty Paying Gas/Electric Bills: No Difficulty Paying for Meds: No Currently Unemployed: No Education: Trade/Vocational Certificate Difficulty w/ Childcare or Family Care: No Spiritual care concerns: No Exam Const: General: healthy appearing and no acute distress Nutritional Appearance: well nourished Orientation/consciousness: patient oriented x3 Limitations: no limitations Eyes: Conjunctivae: conjunctivae normal Chest: Chest palpation & inspection: normal inspection of the chest Resp: Effort & Inspection: normal respiratory effort Auscultation: clear to auscultation bilaterally Cardio: Rate: regular rate Rhythm: regular rhythm Urinary Catheter: Urinary Catheter: other ( Patient with a Rock catheter) Back/Spine/Pelvis: Back: no CVA tenderness Skin: General skin exam: normal color Rashes: no rashes Neuro: General: patient oriented x3 Cranial nerves: Yes Nystagmus not present Speech: normal speech Course Course Emergency Course: repeat vitals are stable, the patient received a dose of IV ceftriaxone blood work performed shows a normal white blood cell count CMP performed shows that her potassium was 3.4 and received a
[2023-09-27 15:00] VITALS: BP 143/66; PULSE 103; RESP 17; O2SAT 96
--- NOTE | 2023-09-27 15:15 | PC.NURSE ---
On 09/27/23, the student, Meli Doss, provided care and completed [facility] documentation on this patient. I have reviewed the student's documentation and agree with the findings.
[2023-09-27 15:30] VITALS: BP 161/69; PULSE 104; RESP 17; O2SAT 99
--- NOTE | 2023-09-27 15:44 | PC.NURSE ---
Per family patient is an ambulance transfer back to her home, they prefer [facility].
[2023-09-27 16:05] VITALS: BP 130/57; PULSE 100; RESP 17; TEMP 36.8; O2SAT 98
== END 2023-09-27 16:05 | disposition home or self-care (01) ==
PROVIDERS: Emergency Provider Emergency Medicine; PCP Physician Assistant
DX: N39.0 Urinary tract infection, site not specified (principal)
CPT/HCPCS: 36415; 80053; 83605; 85025; 96365; 99284; A9270; J0696